=== PATIENT | male | born 1955 | race Caucasian/White ===

== ENCOUNTER 2017-11-29 05:45 | Day surgery (SDC) | payer BC, OTHER ==
[~2017-11-29] VITALS: Ht 180.3 cm; Wt 119.8 kg
[~2017-11-29 05:45] MED LIST: ASPI325T PO; ATEN-102 PO; COQ150CA OR; NIAC500T18 OR; NIAC500T52 PO; PRED20 PO; TAB-TAB PO
[2017-11-29] MEDS ORDERED: IOHEXOL 350 MG/ML 50 ML BTL (for Cath Lab) OTHER ONE (05:46)
[2017-11-29] MEDS ORDERED: NS 1000P @30 MLS/HR (KVO) IV SCH (06:15)
[2017-11-29] MEDS ORDERED: VALS1TAB70 PO (06:53)
[2017-11-29] MEDS ORDERED: PANT40TA3 PO (06:53)
[2017-11-29] MEDS ORDERED: COEN1CAP (06:53)
[2017-11-29] MEDS ORDERED: CLOP75TA PO (06:53)
[2017-11-29] MEDS ORDERED: VITA2000 PO (06:53)
[2017-11-29] MEDS ORDERED: MULT-207 PO (06:53)
[2017-11-29] MEDS ORDERED: OMEGCAP PO (06:53)
[2017-11-29] MEDS ORDERED: CYCL10TA PO (06:53)
[2017-11-29] MEDS ORDERED: CARV25TA (06:53)
[2017-11-29] MEDS ORDERED: ALBU6.7H INH (06:53)
[2017-11-29] MEDS ORDERED: EZET1TAB8 PO (06:53)
[2017-11-29] MEDS ORDERED: HYDR-3580 PO (06:53)
[2017-11-29] MEDS ORDERED: VITA500T4 PO (06:53)
[2017-11-29] MEDS ORDERED: ROSU1TAB4 PO (06:53)
[2017-11-29] MEDS ORDERED: ASPI81TA23 PO (06:53)
[2017-11-29 06:55] VITALS: BP 151/89; PULSE 72; RESP 18; TEMP 97.8; O2SAT 95
[2017-11-29] MEDS ORDERED: HEPARIN-NS/PF FLUSH BAG 2,000 ML IV FLUSH ONE (07:15)
[2017-11-29] MEDS ORDERED: MIDAZOLAM HCL 2 MG/2 ML VIAL ONE (07:23)
[2017-11-29] MEDS ORDERED: NITROGLYCERIN INJ 5 ML ONE (07:24)
[2017-11-29] MEDS ORDERED: VERAPAMIL HCL 5 MG/2 ML VIAL ONE (07:24)
[2017-11-29] MEDS ORDERED: HEPARIN SODIUM - IV 10,000 UNITS/10 ML VIAL ONE (07:24)
[2017-11-29] MEDS ORDERED: ISOS30TA3 PO (08:13)
[2017-11-29] MEDS ORDERED: MISC INFORMATION XX ONE (08:15)
[2017-11-29] MEDS ORDERED: SODIUM CHLORIDE 0.9% FLUSH 10 ML FLUSH IV FLUSH PRN (08:15)
[2017-11-29] MEDS ORDERED: SODIUM CHLORIDE 0.9% FLUSH 10 ML FLUSH IV FLUSH SCH (09:00)
[2017-11-29] MEDS ORDERED: SODIUM CHLOR 0.9% 1000 ML INJ 1,000 ML IV SCH (09:00)
--- NOTE | 2017-11-29 09:32 | MA ---
cc: Meek Mohr DO DATE: 11/29/2017 DATE OF PROCEDURE: 11/29/2017. ATTENDING PHYSICIAN: Meek Mohr DO PROCEDURES PERFORMED: Selective right and left coronary angiography and left heart catheterization via the right radial artery approach. PREPROCEDURE DIAGNOSES: 1. Angina pectoris. 2. Coronary artery disease with history of mid RCA stent. 3. Peripheral arterial disease. POSTPROCEDURE DIAGNOSES: 1. Nonobstructive coronary artery disease. 2. Patent previously placed mid RCA stent with minimal ISR. ANESTHESIA: 1. Fentanyl and Versed were used for conscious sedation. 2. Lidocaine was used for local anesthetic. MEDICATIONS: A total of 200 mcg of nitroglycerin and 1.25 mg of verapamil and 5000 units of heparin were administered throughout the case. COMPLICATIONS: None. INFORMED CONSENT: Prior to the procedure, the patient was informed of the risk of the procedure including, but not limited to bleeding, vascular complication, stroke, myocardial infarction, need for emergent bypass surgery, infection, arrhythmia, contrast allergy and . Expressing an understanding of these risks, the patient agreed to proceed with the procedure. DESCRIPTION OF PROCEDURE: After informed consent was obtained, the patient was brought to the cardiac catheterization lab in a postabsorptive state. The patient was prepped and draped in usual sterile fashion. A timeout was taken in order to verify the patient, procedure and preprocedural labs. The right radial artery was identified by anatomic location and palpation of the radial pulse and overlying subcutaneous layers were anesthetized with 1% lidocaine. The right radial artery was cannulated with a 2.5 cm Cook type needle using a Seldinger technique. A micropuncture wire was then advanced into the radial artery without difficulty. A 6-Macedonian glide sheath was then advanced over the wire and with wire and dilator removed the sidearm was flushed with sterile saline and subsequently flushed between catheter exchanges. A JR4 diagnostic catheter was advanced over a J tip guidewire into the ascending aorta and with guidewire removed engaged the right coronary artery. Serial orthogonal angiographic images were obtained. The catheter was exchanged over an exchange length guidewire for a JL 3.5 diagnostic catheter which engaged the left coronary artery. Serial orthogonal angiographic images were obtained. The catheter incidentally crossed the aortic valve into the left ventricle and left ventricular hemodynamics were obtained along with a manual pullback to assess gradient across the aortic valve. The catheter was removed over a guidewire with completion of the case. The sheath was pulled with placement of a TR band and hemostasis achieved prior to the patient leaving the cardiac catheterization laboratory in stable condition. ANGIOGRAPHIC FINDINGS: 1. Left main coronary artery: Left main coronary artery arises from the aorta in its usual position. It is a short length moderate caliber vessel and is angiographically free of disease. 2. LAD: The LAD has mild luminal irregularity in its proximal portion with RENUKA 3 flow throughout and gives rise to a few diagonal branches before continuing distally throughout the apex. There is no significant obstructive coronary disease. 3. Moderate caliber diagonal branch before continuing distally to wrap the apex. There is approximately 30% stenosis in the mid LAD. 4. Left circumflex: Left circumflex is a moderate caliber vessel proximally and gives rise to 2 obtuse marginal branches with mild luminal irregularity before continuing distally to transverse the AV groove as a diminutive vessel. 5. RCA: The RCA arises from the aorta in usual position as a moderate caliber vessel. There is a long length, mild approximate 20% stenosis of the mid RCA with mild nonobstructive in-stent restenosis of prior mid RCA stent. There is mild small vessel disease of the distal right-sided PDA. HEMODYNAMIC FINDINGS: LVEDP 6 mmHg. No significant gradient across the aortic valve upon manual pullback. CONCLUSION: Nonobstructive coronary artery disease with minimal nonflow limiting in-stent restenosis of previously placed mid RCA stent. Suspect his chest pain is due to either microvascular coronary disease versus noncardiac. PLAN: We will start long-acting nitrates with isosorbide mononitrate ER 30 mg daily and he will followup in approximately 2 weeks for further medication adjustment as needed. DO MERYL Otoole , 08:51 AM , 09:31 AM
== END 2017-11-29 11:30 | disposition home or self-care (01) ==
LOC: HDOC 05:45 → HDIC 05:45 → HDOC 11:30
PROVIDERS: ATTEND Internal Medicine Cardiovascular Disease
DX: R07.9 Chest pain, unspecified (principal); I25.10 Atherosclerotic heart disease of native coronary artery without angina pectoris; I73.9 Peripheral vascular disease, unspecified; Z95.5 Presence of coronary angioplasty implant and graft
CPT/HCPCS: 93458; 99152; 99153; C1769; C1893; J1644; J2250; J3010; Q9967